=== PATIENT | female | born 1990 | race Caucasian/White ===

== ENCOUNTER 2020-05-23 12:21 | Emergency (ER) | payer OTHER ==
[2020-05-23 12:46] VITALS: BP 159/111
[2020-05-23 13:26] LABS: Basophils # (Auto) 0.1 K/mm3 (0.0-0.1); Basophils % (Auto) 0.7 % (0.0-1.8); Eosinophils # (Auto) 0.2 K/mm3 (0.0-0.4); Eosinophils % (Auto) 1.8 % (0.0-4.3); Hematocrit 42.2 % (30.3-42.9); Hemoglobin 14.1 gm/dl (10.1-14.3); Lymphocytes # (Auto) 2.6 K/mm3 (1.2-5.4); Lymphocytes % (Auto) 24.2 % (13.4-35.0); Mean Corpuscular HGB Conc 33 % (30-34); Mean Corpuscular Volume 90 fl (79-97); Monocytes # (Auto) 0.9 K/mm3 (0.0-0.8); Monocytes % (Auto) 8.4 % (0.0-7.3); Platelet Count 274 K/mm3 (140-440); Red Cell Distribution Width 14.2 % (13.2-15.2)
[2020-05-23 13:57] LABS: Bacteria,Urine 1+ /HPF (Negative); Bilirubin,Urine NEG (Negative); Blood,Urine LG (Negative); Color,Urine Red (Yellow); Mucus,Urine FEW /HPF; Urobilinogen,Urine < 2.0 mg/dL (<2.0)
[2020-05-23 14:01] LABS: Blood Urea Nitrogen 10 mg/dL (7-17); Calcium 9.6 mg/dL (8.4-10.2); Hemolysis Index 9
[2020-05-23 14:05] LABS: BUN/Creatinine Ratio 14
--- NOTE | 2020-05-23 14:35 | Event Note ---
ED Screening Note ED Screening Note: test over the counter was positive states began having bleeding and clots this morning changed pad 3 times in 6 hours lower abd cramping no fever no v/d no dysuria LNMP: 04/16/2020 /P:0/A:3 pmhx HTN, endometriosis no allergies to meds This initial assessment/diagnostic orders/clinical plan/treatment(s) is/are subject to change based on patients health status, clinical progression and re- assessment by fellow clinical providers in the ED. Further treatment and workup at subsequent clinical providers discretion. Patient/guardian urged not to elope from the ED as their condition may be serious if not clinically assessed and managed. Initial orders include: labs, UA, US
--- NOTE | 2020-05-23 17:20 | Emergency Department Report ---
HPI - General Chief Complaint: Vaginal Bleeding Time Seen by Provider: 05/23/20 14:32 - HPI HPI: This is a 29-year-old female presents to the emergency department with a complaint of some moderate vaginal bleeding that started about 3 hours prior to presentation, along with being . Patient had 2+ home tests last week. Her last menstrual cycle began on April 16. Patient has an appointment this Thursday with her family physician for confirmation of her . With this , the patient is G4, P0 with 3 previous miscarri ages. She has a past medical history of hypertension and endometriosis. She has not taken anything for her symptoms prior to presentation. She denies any dysuria, vaginal discharge, fever, pelvic pain, back pain, headache. ED Past Medical Hx - Past Medical History Previous Medical History?: Yes Hx Hypertension: Yes Additional medical history: endometriosis - Surgical History Past Surgical History?: No - Social History Smoking Status: Current Every Day Smoker Substance Use Type: None - Medications Home Medications: Home Medications Medication Instructions Recorded Confirmed Last Taken Type Nitrofurantoin [place]/M-Cryst 100 mg PO Q12HR #14 capsule 05/23/20 Unknown Rx [Macrobid CAP] ED Review of Systems ROS: Stated complaint: POSS MISCARRIAGE Other details as noted in HPI Comment: All other systems reviewed and negative Constitutional: denies: chills, fever Eyes: denies: eye pain, vision change ENT: denies: ear pain, throat pain Respiratory: denies: cough, shortness of breath Cardiovascular: denies: chest pain, palpitations Gastrointestinal: denies: nausea, vomiting Genitourinary: other (Vaginal bleeding). denies: dysuria, discharge Musculoskeletal: denies: back pain, arthralgia Skin: denies: rash, lesions Neurological: denies: headache, weakness Physical Exam - Physical Exam Vital Signs: Vital Signs 05/23/20 12:41 Temperature 98.2 F Pulse Rate 67 Respiratory 18 Rate Blood Pressure 159/111 O2 Sat by Pulse 98 Oximetry Physical Exam: GENERAL: The patient is well-developed well-nourished. HENT: Normocephalic. Atraumatic. Patient has moist mucous membranes. EYES: Extraocular motions are intact. NECK: Supple. Trachea is midline. CHEST/LUNGS: Clear to auscultation. There is no respiratory distress noted. HEART/CARDIOVASCULAR: Regular. There is no tachycardia. There is no murmur. ABDOMEN: Abdomen is soft, nontender. Patient has normal bowel sounds. SKIN: Skin is warm and dry. NEURO: The patient is awake, alert, and oriented. The patient is cooperative. Normal speech. MUSCULOSKELETAL: There is no tenderness or deformity. There is no limitation range of motion. ED Course Vital Signs 05/23/20 12:41 Temperature 98.2 F Pulse Rate 67 Respiratory 18 Rate Blood Pressure 159/111 O2 Sat by Pulse 98 Oximetry - Consultations Consultation #1: 05/23/20 18:27 I spoke to the CUSTOMER OPERATIONS SPECIALIST on-call, Dr. Treadwell, regarding the ultrasound findings of concern for a right-sided ovarian ectopic . She has recommended that the patient received methotrexate and can then follow-up with her own CUSTOMER OPERATIONS SPECIALIST on Thursday as previously scheduled. ED Medical Decision Making - Lab Data Result diagrams: 05/23/20 13:04 05/23/20 Unknown Lab Results 05/23/20 05/23/20 05/23/20 Range/Units 12:49 13:04 13:04 WBC 10.7 (4.5-11.0) K/mm3 RBC 4.70 (3.65-5.03) M/mm3 Hgb 14.1 (10.1-14.3) gm/dl Hct 42.2 (30.3-42.9) % MCV 90 (79-97) fl MCH 30 (28-32) pg MCHC 33 (30-34) % RDW 14.2 (13.2-15.2) % Plt Count 274 (140-440) K/mm3 Lymph % (Auto) 24.2 (13.4-35.0) % [place] % (Auto) 8.4 H (0.0-7.3) % Eos % (Auto) 1.8 (0.0-4.3) % Baso % (Auto) 0.7 (0.0-1.8) % Lymph # (Auto) 2.6 (1.2-5.4) K/mm3 [place] # (Auto) 0.9 H (0.0-0.8) K/mm3 Eos # (Auto) 0.2 (0.0-0.4) K/mm3 Baso # (Auto) 0.1 (0.0-0.1) K/mm3 Seg Neutrophils % 64.9 (40.0-70.0) % Seg Neutrophils # 7.0 (1.8-7.7) K/mm3 Sodium (137-145) mmol/L Potassium (3.6-5.0) mmol/L Chloride (98-107) mmol/L Carbon Dioxide (22-30) mmol/L Anion Gap mmol/L BUN (7-17) mg/dL Creatinine (0.6-1.2) mg/dL Estimated GFR ml/min BUN/Creatinine Ratio % Glucose (65-100) mg/dL Calcium (8.4-10.2) mg/dL HCG, Quant 285.3 H (0-4) mIU/mL Urine Color (Yellow) Urine Turbidity (Clear) Urine pH (5.0-7.0) Ur Specific [place] (1.003-1.030) Urine Protein (Negative) mg/dL Urine Glucose (UA) (Negative) mg/dL Urine Ketones (Negative) mg/dL Urine Blood (Negative) Urine Nitrite (Negative) Urine Bilirubin (Negative) Urine Urobilinogen (<2.0) mg/dL Ur Leukocyte Esterase (Negative) Urine WBC (Auto) (0.0-6.0) /HPF Urine RBC (Auto) (0.0-6.0) /HPF U Epithel Cells (Auto) (0-13.0) /HPF Urine Bacteria (Auto) (Negative) /HPF Urine Mucus /HPF Blood Type A POSITIVE Ord Rhogam Gestat Weeks WEEKS 05/23/20 05/23/20 05/23/20 Range/Units 18:15 Unknown Unknown WBC (4.5-11.0) K/mm3 RBC (3.65-5.03) M/mm3 Hgb (10.1-14.3) gm/dl Hct (30.3-42.9) % MCV (79-97) fl MCH (28-32) pg MCHC (30-34) % RDW (13.2-15.2) % Plt Count (140-440) K/mm3 Lymph % (Auto) (13.4-35.0) % [place] % (Auto) (0.0-7.3) % Eos % (Auto) (0.0-4.3) % Baso % (Auto) (0.0-1.8) % Lymph # (Auto) (1.2-5.4) K/mm3 [place] # (Auto) (0.0-0.8) K/mm3 Eos # (Auto) (0.0-0.4) K/mm3 Baso # (Auto) (0.0-0.1) K/mm3 Seg Neutrophils % (40.0-70.0) % Seg Neutrophils # (1.8-7.7) K/mm3 Sodium 134 L (137-145) mmol/L Potassium 4.3 (3.6-5.0) mmol/L Chloride 101.1 (98-107) mmol/L Carbon Dioxide 26 (22-30) mmol/L Anion Gap 11 mmol/L BUN 10 (7-17) mg/dL Creatinine 0.7 (0.6-1.2) mg/dL Estimated GFR > 60 ml/min BUN/Creatinine Ratio 14 % Glucose 95 (65-100) mg/dL Calcium 9.6 (8.4-10.2) mg/dL HCG, Quant (0-4) mIU/mL Urine Color Red (Yellow) Urine Turbidity Hazy (Clear) Urine pH 6.0 (5.0-7.0) Ur Specific [place] 1.011 (1.003-1.030) Urine Protein 30 mg/dl (Negative) mg/dL Urine Glucose (UA) Neg (Negative) mg/dL Urine Ketones Neg (Negative) mg/dL Urine Blood Lg (Negative) Urine Nitrite Neg (Negative) Urine Bilirubin Neg (Negative) Urine Urobilinogen < 2.0 (<2.0) mg/dL Ur Leukocyte Esterase Sm (Negative) Urine WBC (Auto) 17.0 H (0.0-6.0) /HPF Urine RBC (Auto) 106.0 (0.0-6.0) /HPF U Epithel Cells (Auto) 3.0 (0-13.0) /HPF Urine Bacteria (Auto) 1+ (Negative) /HPF Urine Mucus Few /HPF Blood Type A POSITIVE Ord Rhogam Gestat Weeks <11 WEEKS - Radiology Data Radiology results: report reviewed OB Ultrasound HISTORY: , bleeding. TECHNIQUE: Grayscale and color imaging performed. COMPARISON: None FINDINGS: Uterus measures 9.4 x 3.2 x 5.8 cm with endometrial echocomplex measuring 5 mm. No intrauterine gestation is identified. The right ovary contains follicles and a complex cystic-appearing structure measuring 2.4 cm in maximal dimension. There is a questionable pole in this structure. No pelvic free fluid. IMPRESSION: No intrauterine gestation identified. Right sided complex cyst versus ectopic . No free fluid to suggest rupture if this in fact an ectopic. Correlate with B HCG and recommend CUSTOMER OPERATIONS SPECIALIST consult. - Medical Decision Making This patient presents to the emergency department with a few days of some mild pelvic discomfort, and now some vaginal bleeding that started a few hours prior to presentation. The patient believes herself to be about 5 weeks . Labs show a beta-hCG of about 280. Patient also has a mild urinary tract infection. Blood type is A+. A ultrasound was done that shows either a right-sided complex ovarian cyst versus an ectopic . Radiology says that there was a questionable pole seen within this complex cyst. CUSTOMER OPERATIONS SPECIALIST was contacted and recommends the patient receive a dose of methotrexate and then the patient can be discharged home to follow-up with her own CUSTOMER OPERATIONS SPECIALIST. The patient has an appointment already scheduled for Thursday, 2 days from now. The patient has been instructed to return to the closest emergency department with any worsening of her symptoms or with any acute distress. Critical Care Time: No Critical care attestation.: If time is entered above; I have spent that time in minutes in the direct care of this critically ill patient, excluding procedure time. ED Disposition Clinical Impression: Ectopic Qualifiers: Location of ectopic : ovarian Intrauterine status: without intrauterine Laterality: right Qualified Code(s): O00.201 - Right ovarian without intrauterine UTI (urinary tract infection) Qualifiers: Urinary tract infection type: acute cystitis Hematuria presence: with hematuria Qualified Code(s): N30.01 - Acute cystitis with hematuria Disposition: - TO HOME OR SELFCARE Is pt being admited?: No Condition: Stable Instructions: Ectopic , Urinary Tract Infection, Adult, Methotrexate Treatment for an Ectopic Additional Instructions: Please follow-up with your CUSTOMER OPERATIONS SPECIALIST on Thursday as previously scheduled. Please go to the closest emergency department with any increased pelvic pain, increased vaginal bleeding, worsening of your symptoms, or with any acute distress. Prescriptions: Nitrofurantoin [place]/M-Cryst [Macrobid CAP] 100 mg PO Q12HR #14 capsule Referrals: Reji ARIAS [Other] - 05/25/20 Time of Disposition: 18:43
--- NOTE | 2020-05-23 18:05 | Ultrasound Report ---
OB Ultrasound HISTORY: , bleeding. TECHNIQUE: Grayscale and color imaging performed. COMPARISON: None FINDINGS: Uterus measures 9.4 x 3.2 x 5.8 cm with endometrial echocomplex measuring 5 mm. No intraute rine gestation is identified. The right ovary contains follicles and a complex cystic-appearing structure measuring 2.4 cm in maxim al dimension. There is a questionable pole in this structure. No pelvic free fluid. IMPRESSION: No intrauterine gestation identified. Right sided complex cyst versus ectopic . No free fluid to suggest rupture if this in fact an ectopic. Correlate with B HCG and recommend OB /SIGNALS INTELLIGENCE ANALYST consult. COMMUNICATION: Time of Communication (SPECIAL EDUCATION PROFESSOR/CDT): 6525 Licensed Practitioner Receiving Report: KYLE Figueroa Signer Name: Emerson Crow MD Signed: 05/23/2020 6:01 PM Workstation Name: [id number]
--- NOTE | 2020-05-23 18:05 | Ultrasound Report ---
OB Ultrasound HISTORY: , bleeding. TECHNIQUE: Grayscale and color imaging performed. COMPARISON: None FINDINGS: Uterus measures 9.4 x 3.2 x 5.8 cm with endometrial echocomplex measuring 5 mm. No intraute rine gestation is identified. The right ovary contains follicles and a complex cystic-appearing structure measuring 2.4 cm in maxim al dimension. There is a questionable pole in this structure. No pelvic free fluid. IMPRESSION: No intrauterine gestation identified. Right sided complex cyst versus ectopic . No free fluid to suggest rupture if this in fact an ectopic. Correlate with B HCG and recommend OB /FITNESS TECHNICIAN consult. COMMUNICATION: Time of Communication (FORMULATOR COMPOUNDER/CDT): 8380 Licensed Practitioner Receiving Report: KYLE Figueroa Signer Name: Emerson Crow MD Signed: 05/23/2020 6:01 PM Workstation Name: [id number]
[2020-05-23] MEDS ORDERED: NITROFURANTOIN MONOHYD/M-CRYST 100 MG CAP PO ONE (18:16)
== END 2020-05-23 20:21 | disposition home or self-care (01) ==
LOC: ED 12:21
DX: O00.201 Right ovarian pregnancy without intrauterine pregnancy (principal); O23.41 Unspecified infection of urinary tract in pregnancy, first trimester
CPT/HCPCS: 36415; 76801; 76817; 80048; 81001; 84702; 85025; 86900; 86901; 87086; 96372; 99284; J9260